=== PATIENT | female | born 1950 | race Caucasian/White ===

== ENCOUNTER → 2016-11-02 | Outpatient (CLI) | payer OTHER ==
--- NOTE | 2016-11-02 21:08 | XA ---
Exam Date: 11/02/16 Patient's Age: 66 HEIGHT: 64.0 in. WEIGHT: 184.0 lbs. INDICATIONS: Back pain, bilateral oophorectomy, , hypertension, hysterectomy, low calcium intake, postmenopausal. FRACTURES: TREATMENTS: Allopurinol, baby aspirin, cyclobenzaprine, estrogen, furosemide (water retention), Paxil, Trazodone, Valsartan (hypertension), vitamin D3. ASSESSMENT: The BMD measured at Femur Neck Mean is 1.003 g/cm2 with a T-score of -0.3. Bone density is 10% below young normal. This patient is considered normal according to World Health Organization (WHO) criteria. Fracture risk is low. The BMD measured at Femur Troch Mean is 0.845 g/cm2 with a T-score 0.0 is normal. Fracture risk is low. RESULTS: Site Region Age Classification T-Score BMD AP Site L1-L4 68.5 Normal 2.9 1.554 g/cm2 Dual Femur Neck Mean 68.5 Normal -0.3 1.003 g/cm2 Dual Femur Troch Mean 68.5 N/A 0.0 0.845 g/cm2 Dual Femur Total Mean 68.5 Normal 0.2 1.036 g/cm2 World Health Organization - Criteria for post-menopausal, women: Normal: T-Score at or above -1 SD Osteopenia: T-Score between -1 and -2.5 SD Osteoporosis: T-Score at or below -2.5 SD RECOMMENDATION: Pharmacologic treatment recommendations & Initiate pharmacologic treatment: - In those with hip or vertebral (clinical or asymptomatic) fractures - In those with T -scores <-2.5 at the femoral neck, total hip, or lumbar spine by DXA - In postmenopausal women and men age 50 and older with low bone mass (T-score between -1.0 and -2.5, osteopenia) at the femoral neck, total hip, or lumbar spine by DXA and a 10-year hip fracture probability >3 % or a 10-year major osteoporosis-related fracture probability >20% based on the [place]-adapted WHO absolute fracture risk model (Fracture Risk Algorithm (FRAX); www. NOF.org and www.shef.ac.uk/FRAX) FOLLOW UP: People with diagnosed cases of osteoporosis or at high risk for fracture should have regular bone mineral density tests. For patients eligible for Medicare, routine testing is allowed once every 2 years. The testing frequency can be increased to 1 year for patients who have rapidly progressing disease, those who are reviewing or discontinuing medial therapy to restore bone mass, or have additional risk factors. People with diagnosed cases of osteoporosis or osteopenia should be regularly tested for bone mineral density. For patient eligible for Medicare, routine testing is allowed once every 2 years. The testing frequency can be increased to 1 year for patients who have rapidly progressing disease, or for those who are receiving medial therapy to restore bone mass. [facility] -- MULUGETA Mcclendon [phone] - FAX: [phone] BENJAMIN
== END ==
LOC: MW.DI 11:10
PROVIDERS: ATTEND Physician Assistant
DX: E21.3 Hyperparathyroidism, unspecified (principal); E83.51 Hypocalcemia; Z78.0 Asymptomatic menopausal state; E55.9 Vitamin D deficiency, unspecified
CPT/HCPCS: 77080; 77080-26

== ENCOUNTER → 2016-11-25 | Outpatient (CLI) | payer OTHER | LOC: MW.LAB 08:26 | PROVIDERS: ATTEND Internal Medicine Endocrinology, Diabetes & Metabolism | DX: E21.0 Primary hyperparathyroidism (principal) | CPT/HCPCS: 36415; 80053; 82306; 82310; 82340; 82570; 83735; 83970; 84100; 84300; 84439; 84443 ==

== ENCOUNTER 2020-12-28 21:16 | Emergency (ER) | payer MEDICARE, OTHER ==
[2020-12-28 23:14] LABS: CARBON DIOXIDE,CO2 26.3 mmol/L (21.0-32.0); POTASSIUM,K 3.7 mmol/L (3.5-5.1)
--- NOTE | 2020-12-28 23:17 | CR ---
INDICATION: Shortness of breath TECHNIQUE: Chest radiograph 1 view COMPARISON: None FINDINGS: Mediastinum: The mediastinum is normal in appearance. The heart silhouette is normal in size and morphology. Lung: Small lung volumes are present with mild bibasilar atelectasis and trace right pleural effusion. No pneumothorax is identified. Bone and Soft tissue: Unremarkable for age. IMPRESSION: 1. Small lung volumes are present with mild bibasilar atelectasis and trace right pleural effusion. Dictated by Ryan Arana MD @ 12/28/2020 11:15:07 PM Dictated by: Ryan Arana MD @ 12/28/2020 23:15:13 (Electronically Signed)
--- NOTE | 2020-12-29 00:02 | CT ---
Indication: Flank pain Technique: Nonenhanced axial CT imaging through the abdomen and pelvis. Sagittal and coronal reconstructions are provided. Comparison: CT abdomen pelvis without contrast 03/03/2018 Findings: There is normal renal parenchymal attenuation without hydronephrosis. A 5 cm cortical cyst arises exophytically from the right upper pole. No renal stones are seen on the right. A single 3 mm nonobstructing stone is noted in the left lower pole. There is unremarkable noncontrast appearance of the liver, gallbladder, spleen, pancreas, and adrenal glands. There is no abdominal lymphadenopathy. There is atherosclerosis of the abdominal without underlying aneurysm. The stomach and duodenum are unremarkable. There are no abnormally distended small bowel loops. The appendix is not visualized. There is no colonic wall thickening or mesenteric edema. Mild degenerative changes are noted in the spine. There is moderate bibasilar atelectasis. Impression: A single 3 mm nonobstructing left renal stone. No right renal stones. No urinary obstruction. Please note that all CT scans at this facility use dose modulation, iterative reconstruction, and/or weight-based dosing when appropriate to reduce radiation dose to as low as reasonably achievable. Dictated by Brian Rosa MD @ 12/29/2020 12:01:[address] Brian Rosa @ Dec 29 2020 12:01AM
[2020-12-29 00:56] VITALS: BP 134/71
--- NOTE | 2020-12-29 02:15 | EDM.PDOC ---
ED HPI GENERAL MEDICAL PROBLEM - General Chief Complaint: General Stated Complaint: HIGH BP, FEVER, BACK PAIN Time Seen by Provider: 12/28/20 21:50 - History of Present Illness INITIAL COMMENTS - FREE TEXT/NARRATIVE: CHIEF COMPLAINT(S): Right back pain HISTORY OF PRESENT ILLNESS: This is a 70-year-old woman with a past medical history of CKD, hypertension and prior COVID-19 infection in May 2020 who comes to the emergency department with a chief complaint of right-sided back pain. The patient states that for the last couple of days she has been experiencing right-sided back pain which was not to bad. She states that however she started to get sleepy around 9 PM this evening and took her sleeping medications. She states that when she went to lie down she had increased pain on her right back radiating forward. She describes this pain as dull and achy and intermittent not associated with any nausea, vomiting, chest pain but states that she did have some shortness of breath. She states that she checked her blood pressure and it was elevated. She rates this pain as 6 out of 10 and did take Tylenol before coming in. She states that it has gotten better since that time. She states that she has had multiple complications from Covid and still has a mild cough at baseline. She denies any hemoptysis, recent travel, recent surgery or prior history of DVT or PE. She states that she feels like she still has the cold. She states that she even followed up with her primary care physician to evaluate if anything was due to allergens and had allergy testing which was negative. They also performed an MRI which is negative. She states that she is never had pain like this before. She denies any dysuria, hematuria, vaginal bleeding or vaginal discharge. She denies any history of kidney stones. She denies any aggravating or relieving factors REVIEW OF SYSTEMS: Constitutional: Denies fever, chills. Eyes: Denies eye pain Ears, Nose, Mouth, & Throat: Denies earache Cardiovascular: Positive for right-sided chest pain Respiratory: Positive for shortness of breath and mild cough Gastrointestinal: Denies abdominal pain, nausea, vomiting, diarrhea, hematochezia. Genitourinary: Denies hematuria, vaginal bleeding, vaginal discharge, dysuria Skin:Denies a rash MSK: Positive for right-sided back pain. Neurological: Denies blurred vision Psychiatric: Denies depression PAST MEDICAL HISTORY: As per history of present illness and as reviewed below otherwise noncontributory. SURGICAL HISTORY: As per history of present illness and as reviewed below otherwise noncontributory. SOCIAL HISTORY: As per history of present illness and as reviewed below otherwise noncontributory. FAMILY HISTORY: As per history of present illness and as reviewed below otherwise noncontributory. EXAMINATION OF ORGAN SYSTEMS/BODY AREAS: Constitutional: Blood pressure is 138/48, heart rate 71, respiratory rate 16 with an oxygen saturation of 93% on room air. Temperature 36.3 General: Elderly woman who does not appear to be in acute distress but does appear drowsy Psychiatric: Appropriate mood and affect. Eyes: No scleral icterus or conjunctival erythema ENMT: Moist mucous membranes. No pharyngeal erythema Cardiovascular: Regular, rate, and rhythm. No gallops, murmurs, or rubs. Bilateral upper extremity pulses symmetric and intact. No peripheral edema. No JVD. There is some right tenderness to palpation along the ribs on the lateral lower right side. No overlying skin changes. Respiratory: Lungs clear to auscultation bilaterally. No wheezes, rales, or rhonchi. Gastrointestinal: Soft, nondistended, tenderness to palpation in the right upper quadrant. Negative Mcginnis's and McBurney sign. No rebound or guarding. Normoactive bowel sounds Genitourinary: No suprapubic tenderness no CVA tenderness. Musculoskeletal: Normal range of motion. Skin: No lesions or abrasions. Neurological: Alert, GCS 15 MEDICAL DECISION MAKING AND COURSE IN THE ED WITH INTERPRETATION/REVIEW OF DIAGNOSTIC STUDIES: This is a 70-year-old woman with a past medical history of CKD, hypertension and Covid in May 2020 with persistent symptoms who comes to the emergency department with acute right-sided chest wall and abdominal pain who appears drowsy and is borderline hypoxic. At this time is uncertain as to what is causing the patient's pain however we will obtain a CT abdomen pelvis given the location of her pain to evaluate for any abnormality including cholecystitis. We will obtain a chest x-ray given the right-sided chest wall pain to evaluate for any pneumonia. Will obtain CBC, CMP, and urinalysis. Differential also includes nephrolithiasis. Patient stated that she did not want any pain medication at this time and given the hypoxia we will reevaluate for pain. On review the patient's chart the patient has borderline hypoxia. Laboratory: CBC reveals a leukocytosis of 14.01 with neutrophilic predominance without any left shift. CMP reveals elevated BUN at 26 and a creatinine of 2.0 which is around the patient's baseline, hyperglycemia at 134, hypocalcemia 8.4 with normal LFTs. There is hypoalbuminemia at 3.1. The radiological images were viewed by myself along with reading the report from the radiologist. Chest x-ray reveals bilateral basilar atelectasis and a small trace right pleural effusion. CT abdomen pelvis without contrast given the patient's renal function does not reveal any acute intra-abdominal pathology. There is a 3 mm nonobstructing left renal stone. On reevaluation, the patient continued to report improvement in her pain. However at this time I did encourage the patient to tolerate p.o. fluids and obtain a urine sample to evaluate for any cystitis or pyelonephritis. Patient did have a drop in her oxygen saturation to the low 80s. At this time I did reevaluate the patient the patient was drowsy and was sleeping. We did provide the patient with an incentive spirometer given the atelectasis on chest x-ray. I do believe the patient's drowsiness and atelectasis are likely due to medication side effect given the patient takes trazodone, lorazepam, and melatonin. She did take these prior to arrival. We will reevaluate the patient's pulse oximetry. Urinalysis was a clean catch and was trace for leukocyte esterase, negative for nitrites, and negative for blood. 0-3 WBCs with moderate epithelial cells interpretation: Negative. After labs and imaging I did discuss results with the patient. I did encourage her to follow-up with her primary care physician for continued management. At this time we will treat this like a musculoskeletal spasm. Treatment options were provided to the patient. I did discuss with her that she needed to have a discussion with her primary care physician about her insomnia medications as I do believe this is causing her to have atelectasis and hypoxia. I discussed strict return precautions. She was amenable to discharge at this time and had no further questions. DISPOSITION: The patient was discharged home in stable condition. The patient will follow up with primary care physician in 1 to 3 days CONDITION: Fair PROCEDURES: None FINAL IMPRESSION(S)/DIAGNOSES: 1. Acute right-sided chest pain 2. Acute right-sided abdominal pain Neto Quarles M.D. Right Upper Chest Pain Score (Numeric/FACES): 6 - Related Data Allergies Allergy/AdvReac Type Severity Reaction Status Date / Time Sulfa (Sulfonamide Allergy Rash Verified 11/27/14 16:20 Antibiotics) Home Meds: Home Meds PARoxetine [Paxil CR] 25 mg PO DAILY 11/27/14 [History] Rosuvastatin Calcium [Crestor] 10 mg PO DAILY 11/27/14 [History] estradioL [Vivelle-Dot] 1 patch TRDERM ASDIRECTED 11/27/14 [History] traZODone HCl [Trazodone HCl] 100 mg PO BEDTIME 11/27/14 [History] Bumetanide 2 mg PO DAILY 12/28/20 [History] Doxazosin [Cardura] 4 mg PO BID 12/28/20 [History] Magnesium 250 mg PO DAILY 12/28/20 [History] Melatonin 6 mg PO DAILY 12/28/20 [History] amLODIPine [Norvasc] 5 mg PO DAILY 12/28/20 [History] carvediloL [Carvedilol] 0.5 tab PO BID 12/28/20 [History] hydrALAZINE [Apresoline] 50 mg PO BID 12/28/20 [History] traMADol [Ultram] 50 mg PO ASDIRECTED PRN 12/28/20 [History] Past Medical History Cardiovascular History: Reports: Hypertension Genitourinary History: Reports: Renal Disease Other Genitourinary History: stage 3 kidney disease Social & Family History - Tobacco Use Tobacco Use Status *Q: Never Tobacco User - Recreational Drug Use Recreational Drug Use: No ED ROS GENERAL - Review of Systems Review Of Systems: See Below ED EXAM, GENERAL - Physical Exam Exam: See Below Course - Vital Signs Last Recorded V/S: Last Vital Signs Temp 36.3 C 12/28/20 21:50 Pulse 73 12/29/20 02:20 Resp 18 12/29/20 02:20 BP 134/71 12/29/20 00:55 Pulse Ox 92 L 12/29/20 02:20 - Orders/Labs/Meds Labs: Laboratory Tests 12/28/20 12/28/20 12/28/20 Range/Units 00:00 22:44 22:44 WBC 14.01 H (4.0-11.0) K/uL RBC 4.35 (4.30-5.90) M/uL Hgb 12.1 (12.0-16.0) g/dL Hct 36.6 (36.0-46.0) % MCV 84.1 (80.0-98.0) fL MCH 27.8 (27.0-32.0) pg MCHC 33.1 (31.0-37.0) g/dL RDW Std Deviation 39.2 (28.0-62.0) fl RDW Coeff of Smita 13 (11.0-15.0) % Plt Count 247 (150-400) K/uL MPV 10.60 (7.40-12.00) fL Neut % (Auto) 82.8 H (48.0-80.0) % Lymph % (Auto) 6.1 L (16.0-40.0) % [place] % (Auto) 10.1 (0.0-15.0) % Eos % (Auto) 0.9 (0.0-7.0) % Baso % (Auto) 0.1 (0.0-1.5) % Neut # (Auto) 11.6 H (1.4-5.7) K/uL Lymph # (Auto) 0.9 (0.6-2.4) K/uL [place] # (Auto) 1.4 H (0.0-0.8) K/uL Eos # (Auto) 0.1 (0.0-0.7) K/uL Baso # (Auto) 0.0 (0.0-0.1) K/uL Nucleated RBC % 0.0 /100WBC Nucleated RBCs # 0 K/uL Sodium 139 (136-145) mmol/L Potassium 3.7 (3.5-5.1) mmol/L Chloride 103 (98-107) mmol/L Carbon Dioxide 26.3 (21.0-32.0) mmol/L BUN 26 H (7.0-18.0) mg/dL Creatinine 2.0 H (0.6-1.0) mg/dL Est Cr Clr Drug Dosing 21.96 mL/min Estimated GFR (MDRD) 24.5 ml/min Glucose 134 H (74-106) mg/dL Calcium 8.4 L (8.5-10.1) mg/dL Total Bilirubin 0.3 (0.2-1.0) mg/dL AST 10 L (15-37) IU/L ALT 16 (14-63) IU/L Alkaline Phosphatase 81 (46-116) U/L Total Protein 7.3 (6.4-8.2) g/dL Albumin 3.1 L (3.4-5.0) g/dL Globulin 4.2 H (2.6-4.0) g/dL Albumin/Globulin Ratio 0.7 L (0.9-1.6) Urine Color YELLOW Urine Appearance SLT CLOUDY Urine pH 5.5 (5.0-8.0) Ur Specific [place] 1.015 (1.001-1.035) Urine Protein NEGATIVE (NEGATIVE) mg/dL Urine Glucose (UA) NEGATIVE (NEGATIVE) mg/dL Urine Ketones NEGATIVE (NEGATIVE) mg/dL Urine Occult Blood NEGATIVE (NEGATIVE) Urine Nitrite NEGATIVE (NEGATIVE) Urine Bilirubin NEGATIVE (NEGATIVE) Urine Urobilinogen 0.2 (<2.0) EU/dL Ur Leukocyte Esterase TRACE H (NEGATIVE) Urine RBC 0-2 (0-2/HPF) Urine WBC 0-3 (0-5/HPF) Ur Epithelial Cells MODERATE (NONE-FEW) Urine Bacteria FEW (NEGATIVE) Departure - Departure Time of Disposition: 02:14 Disposition: Home, Self-Care 01 Condition: Fair Clinical Impression: Kidney stone on left side, Atelectasis of both lungs, Right-sided chest wall pain - Discharge Information *PRESCRIPTION DRUG MONITORING PROGRAM REVIEWED*: No *COPY OF PRESCRIPTION DRUG MONITORING REPORT IN PATIENT FIOR: No Instructions: Kidney Stones, [id number], Chest Wall Pain, [id number], Atelectasis, Adult Referrals: Power Amador MD [Primary Care Provider] - Forms: ED Department Discharge Additional Instructions: You were evaluated today on an emergent basis. At this time your work-up was negative. At this time I do believe her pain is likely secondary to musculoskeletal pain. I recommend the use of Tylenol 500 mg to 1000 mg every 6 hours for the next 2 days and then as needed after. Please use ice alternating with heat 20 minutes 4 times a day. You are welcome to use [id number] lidocaine cream for symptomatic relief. In addition during your emergency department stay your chest x-ray did reveal lung collapse in the bottom parts of your lungs. I do believe this is from your sleeping medications. As discussed I would like you to follow-up with your primary care physician to discuss other treatment modalities. I would like you to use the incentive spirometer throughout the day. Please return for any new or worsening symptoms such as chest pain, shortness of breath, cough, fever. Incidentally there was a small kidney stone in the left lower kidney. [facility] - [facility] [address] [place] [id number] [facility] [address] [place] [id number] The patient is informed of any results of their evaluation and diagnostic workup and all questions are answered. They are given discharge instructions and return precautions. The patient is stable for discharge. The patient states they understand and agree with the plan and that they will return if their symptoms get worse or if they have any new concerns. The following information is given to patients seen in the emergency department who are being discharged to home. This information is to outline your options for follow-up care. We provide all patients seen in our emergency department with a follow-up referral. The need for follow-up, as well as the timing and circumstances, are variable depending upon the specifics of your emergency department visit. If you don't have a primary care physician on staff, we will provide you with a referral. We always advise you to contact your personal physician following an emergency department visit to inform them of the circumstance of the visit and for follow-up with them and/or the need for any referrals to a consulting specialist. The emergency department will also refer you to a specialist when appropriate. This referral assures that you have the opportunity for follow-up care with a specialist. All of these measure are taken in an effort to provide you with optimal care, which includes your follow-up. Under all circumstances we always encourage you to contact your private physician who remains a resource for coordinating your care. When calling for follow-up care, please make the office aware that this follow-up is from your recent emergency room visit. If for any reason you are refused follow-up, please contact the [facility] Emergency Department at and asked to speak to the emergency department charge nurse. Sepsis Event Note (ED) - Evaluation Sepsis Screening Result: No Definite Risk - Focused Exam Vital Signs: Vital Signs Temp Pulse Resp BP Pulse Ox 12/29/20 02:20 73 18 92 L 12/29/20 00:55 72 18 134/71 92 L 12/29/20 00:45 84 18 137/75 93 L 12/28/20 23:35 66 17 146/56 H 96 12/28/20 21:50 36.3 C 71 16 138/48 L 93 L
[2020-12-29 02:20] VITALS: PULSE 73
== END 2020-12-29 02:21 | disposition home or self-care (01) ==
LOC: MW.ED 21:16
DX: N20.0 Calculus of kidney (principal); J98.11 Atelectasis; I12.9 Hypertensive chronic kidney disease with stage 1 through stage 4 chronic kidney disease, or unspecified chronic kidney disease; N18.9 Chronic kidney disease, unspecified; Z88.2 Allergy status to sulfonamides; Z79.899 Other long term (current) drug therapy; Z86.16 Personal history of COVID-19
CPT/HCPCS: 36415; 71045; 71045-26; 74176; 74176-26; 80053; 81001; 85025; 99284; 99285-25

== ENCOUNTER 2021-07-28 20:49 | Emergency (ER) | payer MEDICARE, OTHER ==
[2021-07-28 22:21] LABS: BLOOD UREA NITROGEN,BUN 21 mg/dL (7.0-18.0); CARBON DIOXIDE,CO2 18.8 mmol/L (21.0-32.0); CHLORIDE,CL 104 mmol/L (98-107); GLUCOSE RANDOM 148 mg/dL (74-106); POTASSIUM,K 4.2 mmol/L (3.5-5.1); SODIUM,NA 137 mmol/L (136-145)
[2021-07-28] MEDS: Sodium Chloride 0.9% 10 ML Syringe FLUSH PRN ×2 (22:28→23:18)
[2021-07-28] MEDS: Sodium Chloride 0.9% 2.5 ML Syringe FLUSH PRN ×2 (22:28→23:18)
[2021-07-28] MEDS ORDERED: cloNIDine 0.1 MG Tab PO ONE (23:06)
--- NOTE | 2021-07-28 23:34 | EDM.PDOC ---
ED HPI GENERAL MEDICAL PROBLEM - General Chief Complaint: General Stated Complaint: HIGH BP Time Seen by Provider: 07/28/21 22:41 - History of Present Illness INITIAL COMMENTS - FREE TEXT/NARRATIVE: HISTORY AND PHYSICAL: History of present illness: This is a 71-year-old female who has a history seen for hypertension and a recent work-up for her headache secondary to side effects from tato Covid as well as having a Covid vaccine who presents ER today secondary to her blood pressure being markedly elevated today. Patient reports that she went to [facility] today to have a procedure done. Patient reports that she had an MRV performed secondary to her headaches. She reports when she got there they were told that her blood pressure was extremely high. Patient was told to stop her butalbital and also did not take her labetalol this morning. Patient reports that she has been feeling "off "today but this is a common feeling that she is had ever since her diagnosis of coronavirus. Patient had an episode where she had diaphoresis while at the mall. Patient reports this lasted for about 10 to 15 minutes and then has resolved and has not no sequela from there. Patient had her blood pressure checked and she had a blood pressure of 200/60 prior to having her MRV performed. Patient had her test performed went home and took all her blood pressure medicines approximately an hour prior to arrival. She r eports her blood pressure did not come down and so she is here for FU reevaluation. Patient is denying any recent fevers, shakes, chills, nausea, vomiting, diarrhea, dysuria, frequency, urgency, chest pain, shortness of breath, abdominal pain. Patient denies any new symptoms at this time. Patient did start taking prednisone for her headaches a couple days ago and ordered for her to get off her butalbital. Review of systems: As per history of present illness and below otherwise all systems reviewed and negative. Past medical history: As per history of present illness and as reviewed below otherwise noncontributory. Surgical history: As per history of present illness and as reviewed below otherwise noncontributory. Social history: No reported history of drug abuse. Family history: As per history of present illness and as reviewed below otherwise noncontributory. Physical exam: This patient was seen and evaluated during the 2019 SARS-CoV-2 novel coronavirus pandemic period. Community viral transmission is ongoing at time of this encounter and the emergency department is operating under pandemic response procedures. Constitutional: Patient is oriented to person, place, and time. Appears well- developed and well-nourished. No distress. HEENT: Moist mucous membranes Head: Normocephalic and atraumatic Eyes: Right eye exhibits no discharge. Left eye exhibits no discharge. No scleral icterus Neck: Normal range of motion. No tracheal deviation present. Cardiovascular: Normal rate and regular rhythm. Pulmonary: Effort normal, no respiratory distress. Abdominal: No distention Musculoskeletal: Normal range of motion Neurologic: Alert and oriented to person, place and time. Skin: [place], warm and dry. Psychiatric: Normal mood and affect. Behavior is normal. Judgment and thought content normal. Nursing note and vital signs have been reviewed Diagnostics: CBC, CMP within normal limits. Therapeutics: Clonidine 0.1 mg p.o. Assessment and plan: 71-year-old female who presents ER today with elevated blood pressure. Patient did not take her labetalol this morning prior to her procedure. Patient did take an extra dose of labetalol this evening when she did get home however her blood pressure has not come down. In the ED, the patient's blood pressure initially was markedly elevated. Her labs are all within normal limits and she has no evidence of endorgan damage. Patient has hypertensive urgency without hypertensive emergency in the ED. She was given clonidine 0.1 mg and currently her blood pressure is 153/60. Patient reports she feels very comfortable at this time and would like to be discharged home and will follow up with her primary care physician. Reassessment at the time of disposition demonstrates that the patient is in no acute distress. The patient has remained stable throughout the entire ED visit and is without objective evidence for acute process requiring urgent intervention or hospitalization. The patient is stable for discharge, counseling is provided as documented above, discussed symptomatic treatment and specific conditions for return. I have spoken with the patient/caregiver and discussed todays findings, in addition to providing specific details for the plan of care. Questions are answered and there is agreement with the plan. Definitive disposition and diagnosis as appropriate pending reevaluation and review of above. - Related Data Allergies Allergy/AdvReac Type Severity Reaction Status Date / Time Sulfa (Sulfonamide Allergy Rash Verified 07/28/21 20:59 Antibiotics) Home Meds: Home Meds Rosuvastatin Calcium [Crestor] 10 mg PO DAILY 11/27/14 [History] estradioL [Vivelle-Dot] 1 patch TRDERM ASDIRECTED 11/27/14 [History] traZODone HCl [Trazodone HCl] 100 mg PO BEDTIME 11/27/14 [History] Bumetanide 2 mg PO DAILY 12/28/20 [History] Aspirin [Ecotrin EC] 325 mg PO 07/28/21 [History] ClonazePAM [KlonoPIN] 0.5 mg PO 07/28/21 [History] Diltiazem [Diltiazem XR] 240 mg PO 07/28/21 [History] Labetalol [Normodyne] 200 mg PO DAILY 07/28/21 [History] PARoxetine [Paxil CR] 25 mg PO DAILY 07/28/21 [History] Spironolactone [Aldactone] 25 mg PO 07/28/21 [History] Topiramate [Trokendi Xr] 25 mg PO 07/28/21 [History] predniSONE [Prednisone] 4 mg PO ASDIRECTED 07/28/21 [History] Past Medical History HEENT History: Reports: None Cardiovascular History: Reports: Hypertension Genitourinary History: Reports: Renal Disease Other Genitourinary History: stage 3 kidney disease Psychiatric History: Reports: Depression - Infectious Disease History Infectious Disease History: Reports: Mumps Social & Family History - Family History Family Medical History: No Pertinent Family History - Tobacco Use Tobacco Use Status *Q: Never Tobacco User - Recreational Drug Use Recreational Drug Use: No ED ROS GENERAL - Review of Systems Review Of Systems: See Below ED EXAM, GENERAL - Physical Exam Exam: See Below #1 Interpretation EKG Date: 07/28/21 Time: 22:23 EKG Interpretation Comments: EKG: As interpreted by ER physician: Gopal: Nonspecific ST-T wave abnormalities Normal axis No evidence of ST elevation AR Normal sinus bradycardia heart rate of 53 Course - Vital Signs Last Recorded V/S: Last Vital Signs Temp 97.2 F 07/28/21 21:11 Pulse 55 L 07/28/21 23:52 Resp 16 07/28/21 23:52 BP 160/53 H 07/29/21 00:04 Pulse Ox 98 07/28/21 23:52 - Orders/Labs/Meds Orders: Active Orders 24 hr Category Date Time Status Sodium Chloride 0.9% [Saline Flush] Med 07/28/21 21:55 Active 10 ml FLUSH ASDIRECTED PRN Sodium Chloride 0.9% [Saline Flush] Med 07/28/21 21:55 Active 2.5 ml FLUSH ASDIRECTED PRN Saline Lock Insert [OM.PC] Stat Oth 07/28/21 21:55 Ordered Medication Orders Sodium Chloride (Sodium Chloride 0.9% 10 Ml Syringe) 10 ml FLUSH ASDIRECTED PRN PRN Reason: Keep Vein Open Last Admin: 07/28/21 23:18 Dose: 10 ml Documented by: JOSE R Admin: 07/28/21 22:28 Dose: 10 ml Documented by: KATE Sodium Chloride (Sodium Chloride 0.9% 2.5 Ml Syringe) 2.5 ml FLUSH ASDIRECTED PRN PRN Reason: Keep Vein Open Last Admin: 07/28/21 23:18 Dose: 2.5 ml Documented by: JOSE R Admin: 07/28/21 22:28 Dose: 2.5 ml Documented by: KATE Labs: Laboratory Tests 07/28/21 07/28/21 Range/Units 21:53 21:53 WBC 11.52 H (4.0-11.0) K/uL RBC 4.64 (4.30-5.90) M/uL Hgb 13.1 (12.0-16.0) g/dL Hct 37.8 (36.0-46.0) % MCV 81.5 (80.0-98.0) fL MCH 28.2 (27.0-32.0) pg MCHC 34.7 (31.0-37.0) g/dL RDW Std Deviation 40.7 (28.0-62.0) fl RDW Coeff of Smita 14 (11.0-15.0) % Plt Count 231 (150-400) K/uL MPV 10.20 (7.40-12.00) fL Neut % (Auto) 91.4 H (48.0-80.0) % Lymph % (Auto) 4.6 L (16.0-40.0) % [place] % (Auto) 4.0 (0.0-15.0) % Eos % (Auto) 0.0 (0.0-7.0) % Baso % (Auto) 0.0 (0.0-1.5) % Neut # (Auto) 10.5 H (1.4-5.7) K/uL Lymph # (Auto) 0.5 L (0.6-2.4) K/uL [place] # (Auto) 0.5 (0.0-0.8) K/uL Eos # (Auto) 0.0 (0.0-0.7) K/uL Baso # (Auto) 0.0 (0.0-0.1) K/uL Nucleated RBC % 0.0 /100WBC Nucleated RBCs # 0 K/uL Sodium 137 (136-145) mmol/L Potassium 4.2 (3.5-5.1) mmol/L Chloride 104 (98-107) mmol/L Carbon Dioxide 18.8 L (21.0-32.0) mmol/L BUN 21 H (7.0-18.0) mg/dL Creatinine 1.5 H (0.6-1.0) mg/dL Est Cr Clr Drug Dosing 28.84 mL/min Estimated GFR (MDRD) 34.0 ml/min Glucose 148 H (74-106) mg/dL Calcium 8.9 (8.5-10.1) mg/dL Total Bilirubin 0.3 (0.2-1.0) mg/dL AST 12 L (15-37) IU/L ALT 14 (14-63) IU/L Alkaline Phosphatase 98 (46-116) U/L Troponin I < 0.050 (0.000-0.056) ng/mL Total Protein 7.9 (6.4-8.2) g/dL Albumin 3.6 (3.4-5.0) g/dL Globulin 4.3 H (2.6-4.0) g/dL Albumin/Globulin Ratio 0.8 L (0.9-1.6) Meds: Medications Generic Name Dose Route Start Last Admin Trade Name Freq PRN Reason Stop Dose Admin Sodium Chloride 10 ml 07/28/21 21:55 07/28/21 23:18 Sodium Chloride 0.9% 10 Ml Syringe FLUSH 10 ml ASDIRECTED PRN Administration Keep Vein Open Sodium Chloride 2.5 ml 07/28/21 21:55 07/28/21 23:18 Sodium Chloride 0.9% 2.5 Ml Syringe FLUSH 2.5 ml ASDIRECTED PRN Administration Keep Vein Open Discontinued Medications Generic Name Dose Route Start Last Admin Trade Name Vivian PRN Reason Stop Dose Admin Clonidine HCl 0.1 mg 07/28/21 23:06 07/28/21 23:16 Clonidine 0.1 Mg Tab PO 07/28/21 23:07 0.1 mg ONETIME ONE Administration Departure - Departure Time of Disposition: 00:20 Disposition: Home, Self-Care 01 Condition: Good Clinical Impression: Hypertension - Discharge Information Instructions: Hypertension, Adult, [id number] Referrals: Power Amador MD [Primary Care Provider] - Forms: ED Department Discharge Additional Instructions: Please resume your blood pressure medications tomorrow. Please check your blood pressure in the morning and notify your physician of any concerns. Please return the ER if you start developing any new or concerning signs or symptoms. The following information is given to patients seen in the emergency department who are being discharged to home. This information is to outline your options for follow-up care. We provide all patients seen in our emergency department with a follow-up referral. The need for follow-up, as well as the timing and circumstances, are variable depending upon the specifics of your emergency department visit. If you don't have a primary care physician on staff, we will provide you with a referral. We always advise you to contact your personal physician following an emergency department visit to inform them of the circumstance of the visit and for follow-up with them and/or the need for any referrals to a consulting specialist. The emergency department will also refer you to a specialist when appropriate. This referral assures that you have the opportunity for follow-up care with a specialist. All of these measure are taken in an effort to provide you with optimal care, which includes your follow-up. Under all circumstances we always encourage you to contact your private physi sarah who remains a resource for coordinating your care. When calling for follow- up care, please make the office aware that this follow-up is from your recent emergency room visit. If for any reason you are refused follow-up, please contact the [facility] Emergency Department at and asked to speak to the emergency department charge nurse. [facility] - Primary Care [address] [place] [id number] [facility] [address] [place] [id number] Sepsis Event Note (ED) - Evaluation Sepsis Screening Result: No Definite Risk - Focused Exam Vital Signs: Vital Signs Temp Pulse Resp BP BP Pulse Ox 07/29/21 00:04 160/53 H 07/28/21 23:52 55 L 16 182/59 H 98 07/28/21 23:16 187/58 H 07/28/21 21:11 97.2 F 62 17 196/80 H 95 - My Orders Last 24 Hours: My Active Orders 07/28/21 21:55 Sodium Chloride 0.9% [Saline Flush] 10 ml FLUSH ASDIRECTED PRN Sodium Chloride 0.9% [Saline Flush] 2.5 ml FLUSH ASDIRECTED PRN Saline Lock Insert [OM.PC] Stat - Assessment/Plan Last 24 Hours: My Active Orders 07/28/21 21:55 Sodium Chloride 0.9% [Saline Flush] 10 ml FLUSH ASDIRECTED PRN Sodium Chloride 0.9% [Saline Flush] 2.5 ml FLUSH ASDIRECTED PRN Saline Lock Insert [OM.PC] Stat
[2021-07-28 23:52] VITALS: PULSE 55
[2021-07-29 00:35] VITALS: BP 153/54
== END 2021-07-29 00:35 | disposition home or self-care (01) ==
LOC: MW.ED 20:49
DX: I10 Essential (primary) hypertension (principal); R00.1 Bradycardia, unspecified; Z88.2 Allergy status to sulfonamides; Z79.899 Other long term (current) drug therapy
CPT/HCPCS: 36415; 80053; 84484; 85025; 93005; 99283; A9270

== ENCOUNTER 2021-07-30 21:33 | Emergency (ER) | payer MEDICARE, OTHER ==
--- NOTE | 2021-07-30 21:46 | EDM.PDOC ---
ED HPI GENERAL MEDICAL PROBLEM - General Stated Complaint: HIGH BLOOD PRESSURE Time Seen by Provider: 07/30/21 21:37 - History of Present Illness INITIAL COMMENTS - FREE TEXT/NARRATIVE: History of present illness: [] Patient has a vague feeling of pressure in the head with lightheadedness and dizziness. She has decreased energy. She has had migraines since he had a Covid infection this year. She has had an MRV that showed what she says was a blood clot in the center of her front of her brain. She had a repeat 3 days ago and does not have the results and sees the doctor next week. She was here 2 days ago and had elevated blood pressure that responded nicely the clonidine. Her symptoms improved. She began to have her symptoms again yesterday called her doctor and he increased her dose of metoprolol from 100 mg twice daily to 150 mg twice daily. She felt a little better yesterday when starting to feel worse again now. It is Thanksgiving day in her doctor's office was closed. Review of systems: As per history of present illness and below otherwise all systems reviewed and negative. Past medical history: As per history of present illness and as reviewed below otherwise noncontributory. Surgical history: As per history of present illness and as reviewed below otherwise noncontributory. Social history: No reported history of drug or alcohol abuse. Family history: As per history of present illness and as reviewed below otherwise noncontributory. Physical exam: Constitutional - well developed, well-nourished and in no acute distress HEENT - normocephalic, no evidence of trauma - external nose and mouth normal - no mass in neck and no JVD - mucosae moist EYES - full EOM, PERRL, no icterus - no evidence of inflammation, injection, or drainage Respiratory - no respiratory distress, equal bilateral expansion, lungs clear to auscultation and no abnormal lung sounds Cardiovascular - Regular Rhythm with S1 and S2 appreciated and no murmur, gallop or rub. GI - abdomen soft without distension or organomegaly - normal bowel sounds - no guard or rebound Musculoskeletal no gross deformity of long bones or joints - no tenderness, swelling or edema Neurologic -my brief customary neurologic exam is normal. Alert and oriented times four - CN II-XII grossly intact - motor sensory and coordination symmetrically normal Psychiatric - appropriate mood and affect with normal thought content Hematologic - No petechiae or purpura - mucosa appropriate color and sclera not pale - normal nail bed color and refill Integument - no rash or evidence of trauma - normal turgor Diagnostics: [] Therapeutics: [] Impression: [] Plan: [] Definitive disposition and diagnosis as appropriate pending reevaluation and review of above. neck Pain Score (Numeric/FACES): 3 - Related Data Allergies Allergy/AdvReac Type Severity Reaction Status Date / Time Sulfa (Sulfonamide Allergy Rash Verified 07/30/21 21:54 Antibiotics) Home Meds: Home Meds Rosuvastatin Calcium [Crestor] 10 mg PO DAILY 11/27/14 [History] estradioL [Vivelle-Dot] 1 patch TRDERM ASDIRECTED 11/27/14 [History] traZODone HCl [Trazodone HCl] 100 mg PO BEDTIME 11/27/14 [History] Bumetanide 2 mg PO DAILY 12/28/20 [History] Aspirin [Ecotrin EC] 325 mg PO 07/28/21 [History] ClonazePAM [KlonoPIN] 0.5 mg PO 07/28/21 [History] Diltiazem [Diltiazem XR] 240 mg PO 07/28/21 [History] Labetalol [Normodyne] 200 mg PO BID 07/28/21 [History] PARoxetine [Paxil CR] 25 mg PO DAILY 07/28/21 [History] Spironolactone [Aldactone] 25 mg PO 07/28/21 [History] Topiramate [Trokendi Xr] 25 mg PO 07/28/21 [History] predniSONE [Prednisone] 4 mg PO ASDIRECTED 07/28/21 [History] Past Medical History HEENT History: Reports: None Cardiovascular History: Reports: Hypertension Genitourinary History: Reports: Renal Disease Other Genitourinary History: stage 3 kidney disease Psychiatric History: Reports: Depression - Infectious Disease History Infectious Disease History: Reports: Mumps Social & Family History - Family History Family Medical History: No Pertinent Family History ED ROS GENERAL - Review of Systems Review Of Systems: Comprehensive ROS is negative, except as noted in HPI. ED EXAM, GENERAL - Physical Exam Exam: See Below Free Text/Narrative:: My physical exam is in the HPI Course - Vital Signs Last Recorded V/S: Last Vital Signs Temp 35.9 C L 07/30/21 21:51 Pulse 50 L 07/30/21 22:51 Resp 16 07/30/21 22:51 BP 181/63 H 07/30/21 22:51 Pulse Ox 97 07/30/21 22:51 - Orders/Labs/Meds Orders: Active Orders 24 hr Category Date Time Status CULTURE URINE [MREF] Stat Lab 07/30/21 22:19 Received Labs: Laboratory Tests 07/30/21 Range/Units 22:19 Urine Color YELLOW Urine Appearance HAZY Urine pH 6.0 (5.0-8.0) Ur Specific [place] >= 1.030 (1.001-1.035) Urine Protein 100 H (NEGATIVE) mg/dL Urine Glucose (UA) NEGATIVE (NEGATIVE) mg/dL Urine Ketones NEGATIVE (NEGATIVE) mg/dL Urine Occult Blood TRACE-INTACT H (NEGATIVE) Urine Nitrite POSITIVE H (NEGATIVE) Urine Bilirubin NEGATIVE (NEGATIVE) Urine Urobilinogen 0.2 (<2.0) EU/dL Ur Leukocyte Esterase NEGATIVE (NEGATIVE) Urine RBC 0-1 (0-2/HPF) Urine WBC 1-3 (0-5/HPF) Ur Epithelial Cells RARE (NONE-FEW) Urine Bacteria 2+ H (NEGATIVE) Meds: Medications Discontinued Medications Generic Name Dose Route Start Last Admin Trade Name Freq PRN Reason Stop Dose Admin Clonidine HCl 0.1 mg 07/30/21 22:15 07/30/21 22:18 Clonidine 0.1 Mg Tab PO 07/30/21 22:16 0.1 mg ONETIME ONE Administration - Re-Assessments/Exams Free Text/Narrative Re-Assessment/Exam: 07/30/21 23:29 Blood pressure in the 170s. Urine inconclusive with positive nitrite but minimal cells. Departure - Departure Time of Disposition: 23:29 Disposition: Home, Self-Care 01 Condition: Good Clinical Impression: Hypertension - Discharge Information Instructions: Hypertension, Adult, [id number] Referrals: Power Amador MD [Primary Care Provider] - Additional Instructions: Your urine was inconclusive. The culture will be sent to decide. We will get in touch with you. [facility] - Primary Care [address] [place] [address] [id number] [address] [place] [address] The following information is given to patients seen in the emergency department who are being discharged to home. This information is to outline your options for follow-up care. We provide all patients seen in our emergency department with a follow-up referral. The need for follow-up, as well as the timing and circumstances, are variable depending upon the specifics of your emergency department visit. If you don't have a primary care physician on staff, we will provide you with a referral. We always advise you to contact your personal physician following an emergency department visit to inform them of the circumstance of the visit and for follow-up with them and/or the need for any referrals to a consulting specialist. The emergency department will also refer you to a specialist when appropriate. This referral assures that you have the opportunity for follow-up care with a specialist. All of these measure are taken in an effort to provide you with optimal care, which includes your follow-up. Under all circumstances we always encourage you to contact your private physician who remains a resource for coordinating your care. When calling for follow-up care, please make the office aware that this follow-up is from your recent emergency room visit. If for any reason you are refused follow-up, please contact the [facility] Emergency Department at and asked to speak to the emergency department charge nurse. Sepsis Event Note (ED) - Focused Exam Vital Signs: Vital Signs Temp Pulse Resp BP BP Pulse Ox 07/30/21 22:51 50 L 16 181/63 H 97 07/30/21 22:18 183/57 H 07/30/21 21:51 35.9 C L 96 16 190/63 H 97 - My Orders Last 24 Hours: My Active Orders 07/30/21 22:19 CULTURE URINE [MREF] Stat - Assessment/Plan Last 24 Hours: My Active Orders 07/30/21 22:19 CULTURE URINE [MREF] Stat
[2021-07-30] MEDS ORDERED: cloNIDine 0.1 MG Tab PO ONE (22:15)
[2021-07-30 23:31] VITALS: BP 176/60; PULSE 48
== END 2021-07-30 23:31 | disposition home or self-care (01) ==
LOC: MW.ED 21:33
DX: I12.9 Hypertensive chronic kidney disease with stage 1 through stage 4 chronic kidney disease, or unspecified chronic kidney disease (principal); N18.30 Chronic kidney disease, stage 3 unspecified; Z88.2 Allergy status to sulfonamides; Z79.82 Long term (current) use of aspirin; Z79.899 Other long term (current) drug therapy
CPT/HCPCS: 81001; 87086; 87088; 87186; 99284; A9270

== ENCOUNTER 2022-05-16 14:41 | Emergency (ER) | payer MEDICARE, OTHER ==
[2022-05-16] MEDS ORDERED: Ondansetron 4 MG/2 ML SDV IVPUSH ONE (15:36)
[2022-05-16] MEDS ORDERED: Ketorolac 30 MG/ML SDV IVPUSH ONE (15:36)
[2022-05-16] MEDS ORDERED: Sodium Chloride 0.9% 1,000 ML IV ONE (15:36)
[2022-05-16] MEDS ORDERED: Metoclopramide 10 MG/2 ML SDV IV ONE (15:36)
[2022-05-16] MEDS ORDERED: diphenhydrAMINE 50 MG/ML SDV IVPUSH ONE (15:36)
[2022-05-16 16:05] LABS: CORONAVIRUS COVID-19 NAA NEGATIVE (NEGATIVE)
[2022-05-16 17:00] LABS: INFLUENZA A NAA NEGATIVE (NEGATIVE); INFLUENZA B NAA NEGATIVE (NEGATIVE)
[2022-05-16 18:51] VITALS: BP 187/64; PULSE 52
== END 2022-05-16 18:44 | disposition home or self-care (01) ==
LOC: MW.ED 14:41
DX: G43.909 Migraine, unspecified, not intractable, without status migrainosus (principal); I12.9 Hypertensive chronic kidney disease with stage 1 through stage 4 chronic kidney disease, or unspecified chronic kidney disease; N18.30 Chronic kidney disease, stage 3 unspecified; F32.A Depression, unspecified; Z79.899 Other long term (current) drug therapy; Z20.822 Contact with and (suspected) exposure to COVID-19; Z88.2 Allergy status to sulfonamides
CPT/HCPCS: 0240U; 70450; 96361; 96374; 96375; 99284; J1200; J1885; J2405; J2765; J7030

== ENCOUNTER 2023-01-06 07:33 | Day surgery (SDC) | payer MEDICARE, OTHER ==
[~2023-01-06 07:33] MED LIST: Lactated Ringers 1,000 ML IV SCH; Propofol 200 MG/20 ML SDV ONE; Sodium Chloride 0.9% 10 ML Syringe FLUSH PRN; Sodium Chloride 0.9% 2.5 ML Syringe FLUSH PRN; Sodium Chloride 0.9% 20 ML SDV IV PRN
[2023-01-06] MEDS ORDERED: Propofol 200 MG/20 ML SDV ONE ×2 (09:14→09:31)
[2023-01-06] MEDS ORDERED: cefOXitin 1 GM Vial ONE (09:14)
[2023-01-06] MEDS ORDERED: Succinylcholine/Sod PF 100 MG/5 ML SYRINGE IV ONE (09:24)
[2023-01-06] MEDS ORDERED: propofoL 50 ML ONE (09:53)
[2023-01-06] MEDS ORDERED: Acetaminophen 1,000 MG in Premix Bag 1 BAG IV ONE (11:24)
[2023-01-06 13:08] VITALS: BP 157/68; PULSE 61
== END 2023-01-06 12:20 | disposition home or self-care (01) ==
LOC: MW.SDS 07:33
PROVIDERS: ATTEND Surgery
DX: D12.4 Benign neoplasm of descending colon (principal); D12.2 Benign neoplasm of ascending colon; D12.5 Benign neoplasm of sigmoid colon; D12.3 Benign neoplasm of transverse colon; K62.1 Rectal polyp; F41.9 Anxiety disorder, unspecified; I12.9 Hypertensive chronic kidney disease with stage 1 through stage 4 chronic kidney disease, or unspecified chronic kidney disease; N18.30 Chronic kidney disease, stage 3 unspecified; F32.A Depression, unspecified; M79.7 Fibromyalgia; K59.09 Other constipation; G47.00 Insomnia, unspecified; E66.9 Obesity, unspecified; Z86.010 Personal history of colon polyps; Z88.2 Allergy status to sulfonamides; Z98.2 Presence of cerebrospinal fluid drainage device; Z79.899 Other long term (current) drug therapy; Z68.33 Body mass index [BMI] 33.0-33.9, adult
CPT/HCPCS: 45380; 45381; 45385; J0131; J0330; J0694; J2704; J7120; 00811; 99100

== ENCOUNTER 2024-10-18 07:14 | Day surgery (SDC) | payer MEDICARE, OTHER ==
[~2024-10-18 07:14] MED LIST changes: -Lactated Ringers 1,000 ML IV SCH; -Propofol 200 MG/20 ML SDV ONE
[2024-10-18] MEDS: Lactated Ringers 1,000 ML IV SCH (07:53)
[2024-10-18] MEDS ORDERED: propofoL 500 MG/50 ML 50 ML ONE (08:04)
[2024-10-18] MEDS ORDERED: Lidocaine 2% 5 ML SDV ONE (08:04)
[2024-10-18] MEDS ORDERED: Propofol 200 MG/20 ML SDV ONE (08:59)
[2024-10-18 10:27] VITALS: BP 174/86; PULSE 61
== END 2024-10-18 10:40 | disposition home or self-care (01) ==
LOC: MW.SDS 07:14
PROVIDERS: ATTEND Surgery
DX: D12.2 Benign neoplasm of ascending colon (principal); D12.3 Benign neoplasm of transverse colon; D12.4 Benign neoplasm of descending colon; K57.30 Diverticulosis of large intestine without perforation or abscess without bleeding; I12.9 Hypertensive chronic kidney disease with stage 1 through stage 4 chronic kidney disease, or unspecified chronic kidney disease; N18.9 Chronic kidney disease, unspecified; Z86.0100 Personal history of colon polyps, unspecified; E78.00 Pure hypercholesterolemia, unspecified; Z88.2 Allergy status to sulfonamides; Z79.82 Long term (current) use of aspirin; Z79.899 Other long term (current) drug therapy
CPT/HCPCS: 45380; 88305; J2704; J7120; 00811; 99100; J3490

== ENCOUNTER 2024-12-22 11:19 | Emergency (ER) | payer MEDICARE, OTHER ==
[2024-12-22 12:27] VITALS: BP 191/70; PULSE 77
[2024-12-22] MEDS ORDERED: Sodium Chloride 0.9% 10 ML Syringe FLUSH PRN (12:32)
[2024-12-22] MEDS ORDERED: Sodium Chloride 0.9% 2.5 ML Syringe FLUSH PRN (12:32)
[2024-12-22 12:47] LABS: BASOPHILS ABSOLUTE AUTO 0.01 K/uL (0.00-0.20); BASOPHILS PERCENT AUTO 0.1 % (0.0-1.0); HEMATOCRIT 36.6 % (37.0-47.0); HEMOGLOBIN 12.5 g/dL (12.0-16.0); IMMATURE GRAN ABSOLUTE AUTO 0.05 K/uL (0.00-0.05); IMMATURE GRAN PERCENT AUTO 0.4 % (0.0-0.4); LYMPHOCYTES ABSOLUTE AUTO 0.39 K/uL (1.00-4.80); LYMPHOCYTES PERCENT AUTO 3.1 % (24.0-44.0); MEAN CORPUSCULAR HEMOGLOBIN 29.3 pg (28.0-32.0); MEAN CORPUSCULAR HGB CONC 34.2 g/dL (32.0-36.0); MEAN CORPUSCULAR VOLUME 85.9 fL (83.0-99.0); MEAN PLATELET VOLUME 10.4 fL (9.4-12.3); MONOCYTES ABSOLUTE AUTO 0.27 K/uL (0.00-0.80); MONOCYTES PERCENT AUTO 2.1 % (0.0-8.0); NEUTROPHILS ABSOLUTE AUTO 11.98 K/uL (1.80-7.70); NEUTROPHILS PERCENT AUTO 94.3 % (41.0-71.0); PLATELET COUNT,PLT 195 K/uL (150-400); RED BLOOD CELL COUNT 4.26 M/uL (4.10-5.30)
[2024-12-22 12:59] LABS: INR 1.06 (0.86-1.11)
[2024-12-22 13:10] LABS: A/G RATIO 1.1 (0.9-1.6); ALBUMIN 3.7 g/dL (3.4-5.0); BILIRUBIN TOTAL 0.3 mg/dL (0.2-1.0); CALCIUM 9.2 mg/dL (8.5-10.1); CREATININE 2.2 mg/dL (0.6-1.0); EST CRCL DRUG DOSING (CG) 18.79 mL/min; POTASSIUM,K 4.2 mmol/L (3.5-5.1); PROTEIN TOTAL,TP 7.2 g/dL (6.4-8.2)
[2024-12-22] MEDS: Lactated Ringers 500 ML IV ONE ×2 (13:30→15:03)
[2024-12-22] MEDS: Iopamidol 755 MG/ML 500 ML Multipack Bottle IVPUSH ONE (13:31)
[2024-12-22 14:17] LABS: TSH ULTRASENSITIVE 0.65 uIU/mL (0.36-3.74)
[2024-12-22] MEDS ORDERED: amLODIPine 2.5 MG Tab PO ONE (15:22)
[2024-12-22] MEDS: Meclizine 25 MG Tab PO ONE ×2 (16:16→17:42)
[2024-12-22] MEDS: Aspirin 81 MG Tab.Chew PO ONE (16:16)
== END 2024-12-22 19:12 ==
LOC: MW.ED 11:19
DX: R42 Dizziness and giddiness (principal); I12.9 Hypertensive chronic kidney disease with stage 1 through stage 4 chronic kidney disease, or unspecified chronic kidney disease; N18.9 Chronic kidney disease, unspecified; Z88.2 Allergy status to sulfonamides; Z79.82 Long term (current) use of aspirin; Z79.899 Other long term (current) drug therapy; Z86.16 Personal history of COVID-19; Z90.710 Acquired absence of both cervix and uterus; W19.XXXA Unspecified fall, initial encounter
CPT/HCPCS: 36415; 70450; 70496; 70498; 71045; 80053; 82947; 83690; 84443; 84484; 85025; 85610; 93005; 96360; 96361; 99285; A9270; J7120; Q9967; 99284

== ENCOUNTER 2025-03-25 07:56 | Emergency (ER) | payer MEDICARE, OTHER ==
[2025-03-25 08:36] LABS: BASOPHILS ABSOLUTE AUTO 0.02 K/uL (0.00-0.20); BASOPHILS PERCENT AUTO 0.3 % (0.0-1.0); EOSINOPHILS ABSOLUTE AUTO 0.08 K/uL (0.00-0.45); EOSINOPHILS PERCENT AUTO 1.2 % (0.0-6.0); IMMATURE GRAN ABSOLUTE AUTO 0.02 K/uL (0.00-0.05); IMMATURE GRAN PERCENT AUTO 0.3 % (0.0-0.4); LYMPHOCYTES ABSOLUTE AUTO 1.47 K/uL (1.00-4.80); LYMPHOCYTES PERCENT AUTO 21.4 % (24.0-44.0); MEAN PLATELET VOLUME 9.9 fL (9.4-12.3); MONOCYTES ABSOLUTE AUTO 0.45 K/uL (0.00-0.80); MONOCYTES PERCENT AUTO 6.6 % (0.0-8.0); NEUTROPHILS ABSOLUTE AUTO 4.82 K/uL (1.80-7.70); NEUTROPHILS PERCENT AUTO 70.2 % (41.0-71.0); NRBC ABSOLUTE 0.00 K/uL (0.00-0.02); NRBC PERCENT 0.0 /100WBC (0.0-0.2); PLATELET COUNT,PLT 192 K/uL (150-400); RED BLOOD CELL COUNT 4.12 M/uL (4.10-5.30); WHITE BLOOD CELL COUNT,WBC 6.86 K/uL (3.9-11.3)
[2025-03-25 09:15] LABS: A/G RATIO 1.1 (0.9-1.6); ALANINE AMINOTRANSFERASE,ALT 25.0 IU/L (14-63); ASPARTATE AMNIOTRANSFERASE,AST 12.0 IU/L (15-37); BILIRUBIN TOTAL 0.4 mg/dL (0.2-1.0); BLOOD UREA NITROGEN,BUN 40.0 mg/dL (7.0-18.0); CARBON DIOXIDE,CO2 28.6 mmol/L (21.0-32.0); CHLORIDE,CL 105.0 mmol/L (98-107); CREATININE 2.4 mg/dL (0.6-1.0); EST CRCL DRUG DOSING (CG) 17.22 mL/min; GLUCOSE RANDOM 162.0 mg/dL (74-106); POTASSIUM,K 3.7 mmol/L (3.5-5.1); PROTEIN TOTAL,TP 6.6 g/dL (6.4-8.2); SODIUM,NA 141.0 mmol/L (136-145)
[2025-03-25 09:17] LABS: ESTIMATED GFR 20.0 mL/min (>60)
[2025-03-25 09:25] VITALS: BP 159/69; PULSE 63
== END 2025-03-25 09:38 | disposition home or self-care (01) ==
LOC: MW.ED 07:56
DX: M25.512 Pain in left shoulder (principal); I10 Essential (primary) hypertension; E78.00 Pure hypercholesterolemia, unspecified; E66.9 Obesity, unspecified; Z90.710 Acquired absence of both cervix and uterus; Z79.899 Other long term (current) drug therapy; Z88.2 Allergy status to sulfonamides; Z79.82 Long term (current) use of aspirin; Z68.32 Body mass index [BMI] 32.0-32.9, adult
CPT/HCPCS: 36415; 73030-26-LT; 73030-LT; 80053; 84484; 85025; 93005; 93010; 99284

== ENCOUNTER 2025-05-13 17:38 | Emergency (ER) | payer MEDICARE, OTHER ==
[2025-05-13 18:47] VITALS: BP 140/83; PULSE 70
[2025-05-13] MEDS ORDERED: Sodium Chloride 0.9% 10 ML Syringe FLUSH PRN (19:27)
[2025-05-13] MEDS ORDERED: Sodium Chloride 0.9% 2.5 ML Syringe FLUSH PRN (19:27)
[2025-05-13 19:41] LABS: BASOPHILS ABSOLUTE AUTO 0.03 K/uL (0.00-0.20); BASOPHILS PERCENT AUTO 0.3 % (0.0-1.0); EOSINOPHILS ABSOLUTE AUTO 0.11 K/uL (0.00-0.45); EOSINOPHILS PERCENT AUTO 1.1 % (0.0-6.0); IMMATURE GRAN ABSOLUTE AUTO 0.03 K/uL (0.00-0.05); IMMATURE GRAN PERCENT AUTO 0.3 % (0.0-0.4); LYMPHOCYTES ABSOLUTE AUTO 1.25 K/uL (1.00-4.80); LYMPHOCYTES PERCENT AUTO 12.2 % (24.0-44.0); MEAN PLATELET VOLUME 9.8 fL (9.4-12.3); MONOCYTES ABSOLUTE AUTO 0.77 K/uL (0.00-0.80); MONOCYTES PERCENT AUTO 7.5 % (0.0-8.0); NEUTROPHILS ABSOLUTE AUTO 8.06 K/uL (1.80-7.70); NEUTROPHILS PERCENT AUTO 78.6 % (41.0-71.0); NRBC ABSOLUTE 0.00 K/uL (0.00-0.02); NRBC PERCENT 0.0 /100WBC (0.0-0.2); PLATELET COUNT,PLT 159 K/uL (150-400); RED BLOOD CELL COUNT 4.32 M/uL (4.10-5.30); WHITE BLOOD CELL COUNT,WBC 10.25 K/uL (3.9-11.3)
[2025-05-13 20:07] LABS: A/G RATIO 1.1 (0.9-1.6); ALANINE AMINOTRANSFERASE,ALT 26.0 IU/L (14-63); ASPARTATE AMNIOTRANSFERASE,AST 18.0 IU/L (15-37); BILIRUBIN TOTAL 0.7 mg/dL (0.2-1.0); BLOOD UREA NITROGEN,BUN 26.0 mg/dL (7.0-18.0); CARBON DIOXIDE,CO2 26.0 mmol/L (21.0-32.0); CHLORIDE,CL 95.0 mmol/L (98-107); CREATININE 2.3 mg/dL (0.6-1.0); EST CRCL DRUG DOSING (CG) 17.69 mL/min; GLUCOSE RANDOM 111.0 mg/dL (74-106); POTASSIUM,K 3.5 mmol/L (3.5-5.1); PROTEIN TOTAL,TP 7.3 g/dL (6.4-8.2); SODIUM,NA 133.0 mmol/L (136-145)
[2025-05-13 20:10] LABS: LACTIC ACID 1.0 mmol/L (0.4-2.0)
[2025-05-13 20:17] LABS: ESTIMATED GFR 21.0 mL/min (>60)
[2025-05-13 21:47] LABS: APPEARANCE,URINE CLEAR; GLUCOSE,URINE NEGATIVE (NEGATIVE); OCCULT BLOOD,URINE NEGATIVE (NEGATIVE)
== END 2025-05-13 22:30 | disposition home or self-care (01) ==
LOC: MW.ED 17:38
DX: I12.9 Hypertensive chronic kidney disease with stage 1 through stage 4 chronic kidney disease, or unspecified chronic kidney disease (principal); N18.9 Chronic kidney disease, unspecified; R41.0 Disorientation, unspecified; E78.00 Pure hypercholesterolemia, unspecified; Z75.3 Unavailability and inaccessibility of health-care facilities; Z88.2 Allergy status to sulfonamides; Z79.899 Other long term (current) drug therapy
CPT/HCPCS: 36415; 70450; 71045; 80053; 81003; 83605; 83735; 84484; 85025; 96360; 99285; J7040; 99283

== ENCOUNTER 2025-05-16 11:01 | Inpatient (IN) | payer MEDICARE, OTHER ==
[2025-05-16 11:53] LABS: BASOPHILS ABSOLUTE AUTO 0.02 K/uL (0.00-0.20); BASOPHILS PERCENT AUTO 0.1 % (0.0-1.0); EOSINOPHILS ABSOLUTE AUTO 0.09 K/uL (0.00-0.45); EOSINOPHILS PERCENT AUTO 0.6 % (0.0-6.0); IMMATURE GRAN ABSOLUTE AUTO 0.06 K/uL (0.00-0.05); IMMATURE GRAN PERCENT AUTO 0.4 % (0.0-0.4); LYMPHOCYTES ABSOLUTE AUTO 0.72 K/uL (1.00-4.80); LYMPHOCYTES PERCENT AUTO 5.1 % (24.0-44.0); MEAN PLATELET VOLUME 10.3 fL (9.4-12.3); MONOCYTES ABSOLUTE AUTO 0.94 K/uL (0.00-0.80); MONOCYTES PERCENT AUTO 6.7 % (0.0-8.0); NEUTROPHILS ABSOLUTE AUTO 12.18 K/uL (1.80-7.70); NEUTROPHILS PERCENT AUTO 87.1 % (41.0-71.0); NRBC ABSOLUTE 0.00 K/uL (0.00-0.02); NRBC PERCENT 0.0 /100WBC (0.0-0.2); PLATELET COUNT,PLT 154 K/uL (150-400); RED BLOOD CELL COUNT 3.73 M/uL (4.10-5.30); WHITE BLOOD CELL COUNT,WBC 14.01 K/uL (3.9-11.3)
[2025-05-16 12:39] LABS: LACTIC ACID 0.9 mmol/L (0.4-2.0)
[2025-05-16 12:48] LABS: A/G RATIO 0.9 (0.9-1.6); ALANINE AMINOTRANSFERASE,ALT 13.0 IU/L (14-63); ASPARTATE AMNIOTRANSFERASE,AST 24.0 IU/L (15-37); BILIRUBIN TOTAL 0.4 mg/dL (0.2-1.0); BLOOD UREA NITROGEN,BUN 46.0 mg/dL (7.0-18.0); CARBON DIOXIDE,CO2 24.7 mmol/L (21.0-32.0); CHLORIDE,CL 103.0 mmol/L (98-107); CREATININE 3.4 mg/dL (0.6-1.0); EST CRCL DRUG DOSING (CG) 11.97 mL/min; GLUCOSE RANDOM 153.0 mg/dL (74-106); POTASSIUM,K 3.7 mmol/L (3.5-5.1); PROTEIN TOTAL,TP 6.2 g/dL (6.4-8.2); SODIUM,NA 140.0 mmol/L (136-145)
[2025-05-16 13:01] LABS: ESTIMATED GFR 13.0 mL/min (>60)
[2025-05-16] MEDS: Potassium Chloride 20 MEQ Tab.ER PO ONE (13:50)
[2025-05-16 16:10] LABS: APPEARANCE,URINE CLOUDY; GLUCOSE,URINE NEGATIVE (NEGATIVE); OCCULT BLOOD,URINE MODERATE (NEGATIVE)
[2025-05-16 16:22] LABS: EPITHELIAL CELLS,URINE FEW (NONE-FEW)
[2025-05-16] MEDS ORDERED: Sodium Chloride 0.9% 10 ML Syringe FLUSH PRN (17:31)
[2025-05-16] MEDS ORDERED: Sodium Chloride 0.9% 2.5 ML Syringe FLUSH PRN (17:31)
[2025-05-16] MEDS ORDERED: Ondansetron 4 MG/2 ML SDV IVPUSH PRN (17:31)
[2025-05-16] MEDS ORDERED: Ondansetron 4 MG Tab.DIS PO PRN (17:31)
[2025-05-17 06:32] LABS: MEAN PLATELET VOLUME 10.6 fL (9.4-12.3); NRBC ABSOLUTE 0.00 K/uL (0.00-0.02); NRBC PERCENT 0.0 /100WBC (0.0-0.2); PLATELET COUNT,PLT 148 K/uL (150-400); RED BLOOD CELL COUNT 3.48 M/uL (4.10-5.30); WHITE BLOOD CELL COUNT,WBC 11.27 K/uL (3.9-11.3)
[2025-05-17 06:55] LABS: A/G RATIO 0.8 (0.9-1.6); ALANINE AMINOTRANSFERASE,ALT 16.0 IU/L (14-63); ASPARTATE AMNIOTRANSFERASE,AST 25.0 IU/L (15-37); BILIRUBIN TOTAL 0.4 mg/dL (0.2-1.0); BLOOD UREA NITROGEN,BUN 36.0 mg/dL (7.0-18.0); CARBON DIOXIDE,CO2 20.2 mmol/L (21.0-32.0); CHLORIDE,CL 108.0 mmol/L (98-107); CREATININE 2.6 mg/dL (0.6-1.0); EST CRCL DRUG DOSING (CG) 15.65 mL/min; GLUCOSE RANDOM 127.0 mg/dL (74-106); PHOSPHORUS 2.9 mg/dL (2.6-4.7); POTASSIUM,K 3.5 mmol/L (3.5-5.1); PROTEIN TOTAL,TP 5.8 g/dL (6.4-8.2); SODIUM,NA 142.0 mmol/L (136-145)
[2025-05-17 07:00] LABS: ESTIMATED GFR 18.0 mL/min (>60)
[2025-05-17] MEDS: cefTRIAXone 1 GM in Water For Injection, Sterile 10 ML IVPUSH SCH (16:24)
[2025-05-17] MEDS: LURASIDONE HCL 40 MG PO SCH (20:52)
[2025-05-18] MEDS: VILAZODONE HCL 40 MG PO SCH (09:34)
[2025-05-18] MEDS: Cholecalciferol (Vitamin D3) 25 MCG Tab PO SCH (09:34)
[2025-05-19 05:49] LABS: BASOPHILS ABSOLUTE AUTO 0.01 K/uL (0.00-0.20); BASOPHILS PERCENT AUTO 0.1 % (0.0-1.0); EOSINOPHILS ABSOLUTE AUTO 0.13 K/uL (0.00-0.45); EOSINOPHILS PERCENT AUTO 1.7 % (0.0-6.0); IMMATURE GRAN ABSOLUTE AUTO 0.03 K/uL (0.00-0.05); IMMATURE GRAN PERCENT AUTO 0.4 % (0.0-0.4); LYMPHOCYTES ABSOLUTE AUTO 1.18 K/uL (1.00-4.80); LYMPHOCYTES PERCENT AUTO 15.5 % (24.0-44.0); MEAN PLATELET VOLUME 10.5 fL (9.4-12.3); MONOCYTES ABSOLUTE AUTO 0.69 K/uL (0.00-0.80); MONOCYTES PERCENT AUTO 9.1 % (0.0-8.0); NEUTROPHILS ABSOLUTE AUTO 5.57 K/uL (1.80-7.70); NEUTROPHILS PERCENT AUTO 73.2 % (41.0-71.0); NRBC ABSOLUTE 0.00 K/uL (0.00-0.02); NRBC PERCENT 0.0 /100WBC (0.0-0.2); PLATELET COUNT,PLT 179 K/uL (150-400); RED BLOOD CELL COUNT 3.31 M/uL (4.10-5.30); WHITE BLOOD CELL COUNT,WBC 7.61 K/uL (3.9-11.3)
[2025-05-19 06:21] LABS: A/G RATIO 0.8 (0.9-1.6); ALANINE AMINOTRANSFERASE,ALT 28.0 IU/L (14-63); ASPARTATE AMNIOTRANSFERASE,AST 25.0 IU/L (15-37); BILIRUBIN TOTAL 0.3 mg/dL (0.2-1.0); BLOOD UREA NITROGEN,BUN 20.0 mg/dL (7.0-18.0); CARBON DIOXIDE,CO2 23.7 mmol/L (21.0-32.0); CHLORIDE,CL 108.0 mmol/L (98-107); CREATININE 1.7 mg/dL (0.6-1.0); EST CRCL DRUG DOSING (CG) 23.93 mL/min; GLUCOSE RANDOM 100.0 mg/dL (74-106); POTASSIUM,K 3.6 mmol/L (3.5-5.1); PROTEIN TOTAL,TP 5.8 g/dL (6.4-8.2); SODIUM,NA 142.0 mmol/L (136-145)
[2025-05-19 06:26] LABS: ESTIMATED GFR 31.0 mL/min (>60)
[2025-05-20 05:59] LABS: BASOPHILS ABSOLUTE AUTO 0.02 K/uL (0.00-0.20); BASOPHILS PERCENT AUTO 0.3 % (0.0-1.0); EOSINOPHILS ABSOLUTE AUTO 0.17 K/uL (0.00-0.45); EOSINOPHILS PERCENT AUTO 2.5 % (0.0-6.0); IMMATURE GRAN ABSOLUTE AUTO 0.04 K/uL (0.00-0.05); IMMATURE GRAN PERCENT AUTO 0.6 % (0.0-0.4); LYMPHOCYTES ABSOLUTE AUTO 1.47 K/uL (1.00-4.80); LYMPHOCYTES PERCENT AUTO 21.9 % (24.0-44.0); MEAN PLATELET VOLUME 10.3 fL (9.4-12.3); MONOCYTES ABSOLUTE AUTO 0.59 K/uL (0.00-0.80); MONOCYTES PERCENT AUTO 8.8 % (0.0-8.0); NEUTROPHILS ABSOLUTE AUTO 4.43 K/uL (1.80-7.70); NEUTROPHILS PERCENT AUTO 65.9 % (41.0-71.0); NRBC ABSOLUTE 0.00 K/uL (0.00-0.02); NRBC PERCENT 0.0 /100WBC (0.0-0.2); PLATELET COUNT,PLT 211 K/uL (150-400); RED BLOOD CELL COUNT 3.32 M/uL (4.10-5.30); WHITE BLOOD CELL COUNT,WBC 6.72 K/uL (3.9-11.3)
[2025-05-20 06:28] LABS: A/G RATIO 0.7 (0.9-1.6); ALANINE AMINOTRANSFERASE,ALT 19.0 IU/L (14-63); ASPARTATE AMNIOTRANSFERASE,AST 16.0 IU/L (15-37); BILIRUBIN TOTAL 0.3 mg/dL (0.2-1.0); BLOOD UREA NITROGEN,BUN 20.0 mg/dL (7.0-18.0); CARBON DIOXIDE,CO2 25.7 mmol/L (21.0-32.0); CHLORIDE,CL 108.0 mmol/L (98-107); CREATININE 1.8 mg/dL (0.6-1.0); EST CRCL DRUG DOSING (CG) 22.6 mL/min; GLUCOSE RANDOM 98.0 mg/dL (74-106); PHOSPHORUS 4.0 mg/dL (2.6-4.7); POTASSIUM,K 3.4 mmol/L (3.5-5.1); PROTEIN TOTAL,TP 5.9 g/dL (6.4-8.2); SODIUM,NA 143.0 mmol/L (136-145)
[2025-05-20 06:31] LABS: ESTIMATED GFR 29.0 mL/min (>60)
[2025-05-20] MEDS: Potassium Chloride 20 MEQ Tab.ER PO ONE (09:43)
[2025-05-20] MEDS: Magnesium Sulfate 2 GM/50 mL 2 GM in Premix Bag 1 BAG IV ONE (09:49)
[2025-05-20 13:35] VITALS: BP 141/65; PULSE 72
== END 2025-05-20 14:30 | disposition home health service (06) | DRG 690 ==
LOC: MW.ED 11:01 → MW.MS 16:57 → OBSVTOIN 05-17 11:17 → MW.MS 05-17 13:46
PROVIDERS: ADMIT Internal Medicine; ATTEND Internal Medicine
DX: N39.0 Urinary tract infection, site not specified (principal); N17.9 Acute kidney failure, unspecified; F03.94 Unspecified dementia, unspecified severity, with anxiety; Z91.81 History of falling; I10 Essential (primary) hypertension; N18.9 Chronic kidney disease, unspecified; J30.9 Allergic rhinitis, unspecified; H54.7 Unspecified visual loss; E78.00 Pure hypercholesterolemia, unspecified; W19.XXXA Unspecified fall, initial encounter; I12.9 Hypertensive chronic kidney disease with stage 1 through stage 4 chronic kidney disease, or unspecified chronic kidney disease; K59.09 Other constipation; M79.7 Fibromyalgia; G43.909 Migraine, unspecified, not intractable, without status migrainosus; F32.A Depression, unspecified; E66.9 Obesity, unspecified; E86.0 Dehydration; M32.9 Systemic lupus erythematosus, unspecified; N20.0 Calculus of kidney; S82.64XA Nondisplaced fracture of lateral malleolus of right fibula, initial encounter for closed fracture; Z88.2 Allergy status to sulfonamides; Z79.52 Long term (current) use of systemic steroids; Z98.49 Cataract extraction status, unspecified eye; Z86.718 Personal history of other venous thrombosis and embolism; Z79.01 Long term (current) use of anticoagulants; Z90.710 Acquired absence of both cervix and uterus; Z98.890 Other specified postprocedural states; Z68.33 Body mass index [BMI] 33.0-33.9, adult; Z79.899 Other long term (current) drug therapy
CPT/HCPCS: 36415 ×2; 70450; 71045; 71250; 72125; 73610; 74176; 80053 ×2; 81001; 83605; 83735 ×2; 84100; 85025; 85027; 87086; 87426; 96361; 96365; 99285; A9270; J0696; J7030 ×3; J7040 ×3; 87088; 87186; 97162-GP; 97530-GP; 99284; G0378; J3475; J7512